=== PATIENT | female | born 1970 | race Caucasian/White ===

== ENCOUNTER 2019-10-16 17:16 | Inpatient (IN) | payer MEDICAID, SELFPAY ==
[2019-10-16 17:21] VITALS: BP 136/90; PULSE 108; RESP 18; TEMP 36.7; O2SAT 98; BMI 25.8
[2019-10-16 17:31] VITALS: RESP 18
--- NOTE | 2019-10-16 17:43 | ECG_ITS ---
[facility] Test Date: 2019-10-16 Pat Name: Deric Dumas Department: Room: Gender: Female Scout: : 1970 Requested By: Marion Boyle Order Number: [id number] López MD: Maryuri Aparicio M.D. Measurements Intervals [place] Rate: 92 P: 27 MN: 147 QRS: -24 QRSD: 104 T: 50 QT: 386 QTc: 478 Interpretive Statements SINUS RHYTHM POSSIBLE LEFT ATRIAL ENLARGEMENT [-0.1mV P WAVE IN V1/V2] INCOMPLETE RIGHT BUNDLE BRANCH BLOCK [90+ ms QRS DURATION, TERMINAL R IN V1/V2, 40+ ms S IN I/aVL/V4/V5/V6] SEPTAL MYOCARDIAL INFARCTION , OF INDETERMINATE AGE [40+ ms Q WAVE IN V1/V2] No previous ECG available for comparison Electronically Signed On 10-16-2019 20:55:32 CDT by Maryuri Aparicio M.D. [id number]
--- NOTE | 2019-10-16 17:44 | XRR_ITS ---
PROCEDURE INFORMATION: Exam: XR Chest, 1 View Exam date and time: 10/16/2019 5:46 PM Age: 49 years old Clinical indication: Hyperventilation; Additional info: Injury TECHNIQUE: Imaging protocol: XR of the chest Views: 1 view. COMPARISON: No relevant prior studies available. FINDINGS: Lungs: Unremarkable. No consolidation. Pleural space: Unremarkable. No pleural effusion. No pneumothorax. Heart/Mediastinum: Unremarkable. No cardiomegaly. Bones/joints: No acute abnormality. XR/XR chest 1V portable [id number] IMPRESSION: No acute findings.
--- NOTE | 2019-10-16 17:50 | ED_ITS ---
HPI - Psych General: Chief Complaint: Psychiatric Symptoms Stated Complaint: SI ATTEMPT Time Seen by Provider: 10/16/19 17:39 Source: patient and police Mode of arrival: ambulatory Limitations: no limitations History of Present Illness: HPI Narrative: Deric is a 49-year-old female who is brought in by police after she was caught trying to strangle herself with a blanket while in prison. Patient was arrested and charged with DUI and placed in a sobriety hold. She was seen on camera trying to strangle herself because of this she was brought here. The patient never lost consciousness and she denies any injuries. Law enforcement does not report the patient was ever unresponsive or appears significantly affected by the strangulation attempt. Patient admits to history of PTSD and alcohol and drug abuse. She states she has recently lost her sobriety and because of this and the arrest she was overwhelmed and that is why she tried to kill herself. She otherwise denying any complaints or concerns at this time. Review of Systems Const: Denies: fever(s), chills, body aches, fatigue, malaise or diaphoresis Eyes: Denies: change in vision, blurry vision, photophobia, eye discomfort, eye discharge or eye redness ENMT: Denies: throat pain, odynophagia, hoarseness, swelling of lips/tongue, ear or mastoid pain, ear discharge, change in hearing or nasal discharge Card: Denies: chest pain, palpitations, irregular heart rhythm, edema, lightheadedness, syncope, pre-syncope, dyspnea on exertion or orthopnea Resp: Denies: dyspnea, productive cough, non-productive cough, wheezing, hemoptysis or chest congestion GI: Denies: abdominal pain, nausea, vomiting, hematemesis, coffee ground emesis, heartburn, diarrhea, constipation, GI cramping, hematochezia or melena : Denies: flank pain, dysuria, urinary frequency, urinary urgency or hematuria Musc: Denies: neck pain, back pain, extremity pain, extremity swelling, joint pain, joint swelling, joint redness, joint warmth or joint stiffness Skin/Breast: Denies: rash, pruritus, erythema or skin tenderness Neuro: Denies: headache(s), numbness in extremities, weakness in extremities, sensory changes, lack of coordination, difficulty walking, dizziness, vertigo, confusion, Slurred speech present or seizure-like activity Nikita/Lymph: Denies: easy bruising, easy bleeding, petechiae, purpura or enlarged lymph nodes All/Imm: Denies: urticaria, throat swelling, tongue swelling, facial swelling or acute wheezing PFSH ED PFSH: Medical History Alcoholism Opiate abuse, episodic PTSD (post-traumatic stress disorder) Physical Exam Const: COMMON NORMALS: no acute distress, patient oriented x3, no limitations, healthy appearing and well nourished GENERAL APPEARANCE: cooperative, well kempt and well developed HENMT: COMMON NORMALS: normocephalic, atraumatic, external ears normal, EAC's normal and Normal external nose present HEAD & SCALP: normal to inspection, normocephalic and atraumatic FACE & SINUS: normal facial exam and face symmetric NOSE: Normal external nose present and Normal nares present EXTERNAL EAR: Yes external ears normal EXTERNAL AUDITORY CANAL: EAC's normal MOUTH: Normal oral and palatal mucosa present, lip normal and tongue normal Eye: COMMON NORMALS: Equal, round and reactive pupils present and conjunctivae normal GENERAL EYE: appearance normal, both eyes and all related structures ALIGNMENT: Yes alignment normal PERIORBITAL: periorbital findings normal EYELID: eyelids normal CONJUNCTIVA: Yes conjunctivae normal SCLERA: sclerae normal PUPIL: Yes Equal, round and reactive pupils present Neck/C-Spine: COMMON NORMALS: full ROM, no lymphadenopathy, supple, no meningeal signs and no JVD GENERAL: Yes normal visual inspection and Yes trachea midline Chest: COMMONS NORMALS: normal inspection of the chest and normal palpation of entire chest wall Resp: COMMON NORMALS: normal respiratory effort, No retractions, No use of accessory muscles and clear to auscultation bilaterally EFFORT & INSPECTION: Yes able to speak in complete sentences and Yes symmetric chest movement AUSCULTATION: clear to auscultation bilaterally, no crackles, no rales, no rhonchi and no wheezes Cardio: COMMON NORMALS: no JVD, regular rate, regular rhythm, S1 normal heart sound present and S2 normal heart sound present RATE: regular rate RHYTHM: regular rhythm HEART SOUNDS: S1 normal heart sound present, S2 normal heart sound present, no click, no gallops, no murmurs, no rubs and abnormal split S2 GI: COMMON NORMALS: Soft to palpation and No hepatosplenomegaly present PALPATION: Yes Soft to palpation, No Tenderness to palpation present (GI), No Guarding due to palpation present (GI), No Rigid due to palpation, Yes No hepatosplenomegaly present, No Hernia present, No Palpable mass present and No Pulsatile mass present : COMMON NORMALS: Yes no CVA tenderness BLADDER/KIDNEY EXAM: Yes no CVA tenderness EXTERNAL FEMALE EXAM: No Hernia present Back/Pelvis: COMMON NORMALS: no CVA tenderness, thoracic and lumbar spine normal to inspection, no thoracic nor lumbar tenderness and thoraco-lumbar ROM normal Extremity: COMMON NORMALS: normal to inspection, full ROM, capillary refill normal, no joint enlargement, no clubbing, cyanosis or edema and no calf tenderness Neuro: COMMON NORMALS: patient oriented x3, CN's II-XII intact bilaterally, moves all extremities, no focal motor deficits and no sensory deficits noted MENINGEAL SIGNS: Yes no meningeal signs SPEECH: speech normal Psych: COMMON NORMALS: mental status grossly normal, Normal thought process present, cooperative, normal affect, speech normal and activity/motor behavior normal APPEARANCE: Yes well kempt SPEECH: Yes normal speech THOUGHT PROCESS: Normal thought process present Skin: COMMON NORMALS: no rashes or lesions noted, turgor normal, no jaundice, no petechiae and no mottling GENERAL SKIN EXAM: no rashes or lesions noted and turgor normal MDM - Psych MDM Narrative: Medical decision making narrative: Patient does not appear to have any significant injuries from her suicide attempt. I have reviewed the case in full with Dr. Peterson and he is to go to admission we will place the patient under 96-hour hold. EKG Data^: EKG 1: Attestation: I personally reviewed and interpreted this EKG as follows: EKG interpretation date: 10/16/19 EKG interpretation time: 17:56 Interpretation: Normal sinus rhythm at 92 beats a minute, no blocks, normal intervals, nonspecific ST and T wave changes. Discharge Plan Discharge Patient Disposition: Admitted As Inpatient Clinical Impression: Suicidal ideation Condition: Stable Coding Level of Care Code ED Registered Public Health Nurse for Chg Fwd Exam Comprehensive
[2019-10-16] MEDS: haloperidol inj 5 mg/mL INJ 1 mL 2.5 MG IM (17:58)
[2019-10-16] MEDS: LORazepam 2 mg/mL INJ 1 mL 1 MG IM (17:58)
[2019-10-16] MEDS: diphenhydrAMINE 50 mg/mL SDV 1mL IM (17:58)
[2019-10-16 18:17] LABS: Basophils # 0.1 10^3/uL (0.0-0.1); Basophils % 1.1 %; Eosinophils # 0.1 10^3/uL (0.0-0.8); Eosinophils % 1.8 %; Hematocrit 42.9 % (37.0-47.0); Hemoglobin 13.9 g/dL (11.5-15.3); Lymphocytes # 3.4 10^3/uL (0.8-4.8); Lymphocytes % 59.8 %; Mean Corpuscular HGB Conc 32.4 g/dL (30.0-36.0); Mean Corpuscular Hemoglobin 31.2 pg (28.0-34.0); Mean Corpuscular Volume 96.2 fL (81-99); Mean Platelet Volume 9.8 fL (7.4-10.4); Monocytes # 0.5 10^3/uL (0.2-0.9); Monocytes % 8.1 %; Neutrophils # 1.66 10^3/uL (1.8-7.7); Nucleated Red Blood Cells % 0 %; Platelet Count 520 10^3/cmm (130-400); Red Blood Count 4.46 10^6/uL (4.1-5.3); Red Cell Distribution Width 15.8 % (12.1-15.1); White Blood Count 5.7 10^3/uL (4.0-10.0)
[2019-10-16 18:29] LABS: INR 0.81 (0.8-1.2)
[2019-10-16 18:30] LABS: HCG, Serum Qual Negative (Negative)
[2019-10-16 18:46] LABS: Alanine Aminotransferase 20 U/L (0-33); Albumin Level 4.2 g/dL (3.5-5.2); Alcohol Level 195 mg/dL (0-10); Alkaline Phosphatase 101 IU/L (35-105); Anion Gap 15.4 (5-19); Aspartate Amino Transferase 19 U/L (0-32); Blood Urea Nitrogen 10 mg/dL (6-20); Calcium 9.3 mg/dL (8.5-10.5); Carbon Dioxide 26 mmol/L (22-29); Chloride 106 mmol/L (98-107); Globulin 3.2 g/dL (1.3-4.6); Glomerular Filtration Rate 59.2 mL/min (90-130); Glucose 102 mg/dL (65-115); Magnesium 2.2 mg/dL (1.7-2.3); Osmolality Calculated 294 mOsm/kg (285-295); Potassium 3.4 mmol/L (3.5-5.1); Salicylate 1.8 mg/dL (3-10); Sodium 144 mmol/L (136-145); Thyroid Stimulating Hormone 0.38 uIU/mL (0.27-4.20); Total Bilirubin 0.2 mg/dL (0.15-1.2); Total Protein 7.4 g/dL (6.6-8.7)
[2019-10-16 18:47] LABS: Acetaminophen < 5.0 ug/mL (10-30)
--- NOTE | 2019-10-16 19:20 | PC.NURSE ---
attempted to call report at 1845, 1850, and 1920. Unable to call report d/t nurse unavailability in receiving unit.
[2019-10-16 19:25] LABS: Amphetamines Screen Urine Negative (Negative); Barbiturates Screen Urine Negative (Negative); Benzodiazepines Screen Urine Negative (Negative); Cocaine Screen Urine Negative (Negative); Opiate Screen Urine Negative (Negative); PCP Screen Urine Negative (Negative); THC Screen Urine Negative (Negative)
[2019-10-16 19:41] VITALS: RESP 18
[2019-10-16 19:59] VITALS: BP 128/76; PULSE 93; RESP 18; TEMP 35.9; O2SAT 91
[2019-10-16 21:36] VITALS: BP 128/76; PULSE 93; RESP 18; TEMP 35.9; O2SAT 91
[2019-10-16] MEDS: trazodone 50 mg Tablet PO (23:13)
[2019-10-16] MEDS: hyDROXYzine 25 mg Capsule 50 MG PO (23:13)
[2019-10-16] MEDS: acetaminophen 325 mg Tablet 650 MG PO (23:13)
--- NOTE | 2019-10-16 23:15 | PC.NURSE ---
PRN VISTARIL & TRAZODONE VISTARIL 50MG PO & TRAZODONE 50MG PO ADMINISTERED FOR ANXIETY AND SLEEP. WILL MONITOR FOR MEDICATION EFFECTIVENESS.
[2019-10-17 06:00] VITALS: BP 116/78; PULSE 68; RESP 15; TEMP 36.5; O2SAT 96
[2019-10-17] MEDS: pantoprazole DR 40 mg Tablet PO (08:42)
[2019-10-17] MEDS: multivitamin therapeutic Tablet 1 TAB PO (08:42)
[2019-10-17] MEDS: escitalopram 10 mg Tablet 20 MG PO (08:42)
[2019-10-17] MEDS: thiamine 100 mg Tablet PO (08:42)
[2019-10-17] MEDS: pregabalin 150 mg Capsule PO ×2 (08:42→17:25)
[2019-10-17] MEDS: folic acid 1 mg Tablet PO (08:42)
[2019-10-17] MEDS: lisinopril 20 mg Tablet 40 MG PO (08:42)
[2019-10-17] MEDS: nicotine 21 mg Patch 1 PATCH TRANSDERMA (08:43)
[2019-10-17] MEDS: hyDROXYzine 25 mg Capsule 50 MG PO ×2 (08:47→17:25)
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
[2019-10-17] MEDS: LORazepam 2 mg Tablet PO ×2 (13:09→21:14)
[2019-10-17 14:00] VITALS: BP 124/89; PULSE 86; RESP 16; TEMP 36.6; O2SAT 96
[2019-10-17] MEDS: diphenhydrAMINE 50 mg Capsule 100 MG PO (21:03)
[2019-10-17] MEDS: trazodone 50 mg Tablet PO (21:03)
[2019-10-17] MEDS: acetaminophen 325 mg Tablet 650 MG PO (21:03)
[2019-10-17 21:26] VITALS: BP 111/70; PULSE 81; RESP 21; TEMP 37.1; O2SAT 95
--- NOTE | 2019-10-17 22:21 | PC.NURSE ---
pt given scheduled HS benadryl and trazodone, as well as requested Ativan and Tylenol.
[2019-10-18 06:00] VITALS: BP 106/72; PULSE 63; RESP 20; TEMP 37.1; O2SAT 100
[2019-10-18] MEDS: thiamine 100 mg Tablet PO (08:53)
[2019-10-18] MEDS: lisinopril 20 mg Tablet 40 MG PO (08:53)
[2019-10-18] MEDS: pantoprazole DR 40 mg Tablet PO (08:54)
[2019-10-18] MEDS: folic acid 1 mg Tablet PO (08:54)
[2019-10-18] MEDS: multivitamin therapeutic Tablet 1 TAB PO (08:54)
[2019-10-18] MEDS: pregabalin 150 mg Capsule PO ×2 (08:54→18:26)
[2019-10-18] MEDS: nicotine 21 mg Patch 1 PATCH TRANSDERMA (08:54)
[2019-10-18] MEDS: escitalopram 10 mg Tablet 20 MG PO (08:54)
[2019-10-18] MEDS: BuSPIRONE 10 mg Tablet PO ×2 (10:55→18:26)
--- NOTE | 2019-10-18 11:24 | P.PN_ITS ---
Subjective NPU Subjective: Interval history: On her first meeting with this physician, the patient describes her situation consistent with that described in her history and physical. She feels that she is progressing through withdrawal and is having some mild symptoms but is not concerned about immediate outcome of the withdrawal process. She expects that to proceed without difficulty. She is concerned about the many decisions and problems that she is now presented. She is not sure she trusts her judgment. She denied suicidal and homicidal ideation. She denied the presence of auditory and visual hallucinations. She would like to call her sponsor and process her options. She has a job which starts in [employer] tomorrow but is also considering entry into a long-term rehabilitation program. She states that her family is supporting the need to be in rehab. Mental Status Exam MSE Comments: This is a well-nourished, well-developed, white female, with a hospital gown on with appropriate grooming and eye contact. No abnormal movements except for mild psychomotor retardation. Cooperative with exam in no acute distress. Speech was normal rate and volume. Mood described as fatigued; affect congruent. Thought process, organized. Thought content: patient denied any suicidal or homicidal ideation, there were no delusions reported or noted, patient denied any auditory or visual hallucinations. Attention, concentration, and memory appear intact but were not formally tested. She is alert and oriented times three. Insight and judgment are fair. Impulse control impaired. Behavior: Patient Behavior: Cooperative Speech Pattern: Clear Vitals/I&O/Wt Last Vital Signs Temp 98.8 F 10/18/19 06:00 Pulse 63 10/18/19 06:00 Resp 20 H 10/18/19 06:00 BP 106/72 10/18/19 06:00 Pulse Ox 100 10/18/19 06:00 Weight last 48 hrs Weight 81.42 kg Weight 81.647 kg Data NPU : 10/16/19 17:56 10/16/19 17:56 A&P Assessment and plan (1) PTSD (post-traumatic stress disorder): Status: Chronic (2) Alcoholism: Status: Acute (3) Opiate abuse, episodic: Status: Acute (4) Suicidal ideation: Status: Resolved (5) Anxiety: Status: Acute Additional A&P Information This is a 49 year old, white female, with a long history of alcohol use disorder, depression, and anxiety, who presents with active addiction and a desire for rehab if available in her non-insurance status and an openness to lashell atment. Continue current medication. Start Buspar 10 mg po bid. Hospital day #3: No medication changes will be initiated. We will support her exploration of options and support her need to go into a rehabilitation program. However at this time she does not appear to be an imminent risk to self or others. The patient should continue CIWA protocol. Encourage individual, group, and milieu therapy. Continue q-15 minute checks for safety. Recommend sober living treatment at the highest level of care to which the patient is willing to commit. Involuntary Hold Information 96 Hour Hold: 96 Hour Involuntary Admission: Yes 96 Hour Hold Ending Date: 10/22/19 96 Hour Hold Ending Time: 12:01 Attestations NPU Medical Necessity Statement*: Patient will remain in the hospital another 2-3 nights for the completion of her 96-hour involuntary commitment. Coding Level of Care Code Acute Parking Enforcement Specialist for Tiana Davis Diagnoses PTSD (post-traumatic stress disorder) F43.10 Alcoholism F10.20 Opiate abuse, episodic F11.10 Suicidal ideation R45.851 Anxiety F41.9
[2019-10-18] MEDS: hyDROXYzine 25 mg Capsule 50 MG PO ×2 (11:40→20:41)
--- NOTE | 2019-10-18 11:41 | PC.NURSE ---
PRN VISTARIL VISTARIL 50MG PO PER PATIENT C/O ANXIETY. WILL CONTINUE TO MONITOR FOR MEDICATION EFFECTIVENESS.
--- NOTE | 2019-10-18 12:20 | PC.NURSE ---
PRN VISTARIL FOLLOW UP MEDICATION EFFECTIVE. NO FURTHER C/O ANXIETY.
[2019-10-18] MEDS: LORazepam 2 mg Tablet PO (13:57)
[2019-10-18 14:00] VITALS: BP 140/87; PULSE 101; RESP 17; TEMP 36.9; O2SAT 97
[2019-10-18] MEDS: OLANZapine 5 mg ODT PO (15:35)
--- NOTE | 2019-10-18 15:35 | PC.NURSE ---
PRN ZYPREXA ZYDIS ZYPREXA ZYDIS 5MG PO PER PATIENT C/O ANXIETY/AGITATION. PATIENT IS LYING IN BED CRYING. WILL CONTINUE TO MONITOR FOR MEDICATION EFFECTIVENESS.
--- NOTE | 2019-10-18 16:20 | PC.NURSE ---
prn zyprexa alannahydis follow up medication effective. patient lying down in bed resting.
[2019-10-18] MEDS: acetaminophen 325 mg Tablet 650 MG PO (20:41)
[2019-10-18] MEDS: trazodone 50 mg Tablet PO (20:41)
[2019-10-18] MEDS: diphenhydrAMINE 50 mg Capsule 100 MG PO (20:45)
[2019-10-18 22:00] VITALS: BP 98/64; PULSE 67; RESP 16; TEMP 36.6; O2SAT 96
--- NOTE | 2019-10-18 22:09 | PC.NURSE ---
PRNs given @2040 Visteril 50mg PO for anxiety Tylenol 650mg PO for generalized pain Will continue to monitor
--- NOTE | 2019-10-18 22:26 | NUR.SHIFT ---
Pt is easy to talk to this evening. 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 Alcohol has been an issue for this patient since she was 15 years of age. She expressed to me that she has also self medicated her anxiety with street drugs in the past, naming Methamphetamines, Cocaine, and marijuana. She is worried about the location of her car which has her phone and purse in it. She said she seemed to remember that her car was being towed to [facility]. She is supposed to start a new job at [employer] in the morning and needs to contact them before the shift begins. I provided the patient with the phone numbers of the police department in [place], [facility], and the hospital she would be working in. She says that she would like to go to rehab, she spoke to her sponsor for and is ready to commit to treatment in a facility but is concerned that a self pay status would subject her to a lesser treatment facility. She would like to speak to Eladio in social work as soon as possible. One of her concerns is that her fibromyalgia is untreated and stress is making the symptoms worse tonight. She requested medication and was given Visteril 50mg PO and tylenol 650mg PO. She would like something to make her more comfortable.
--- NOTE | 2019-10-18 23:22 | PC.NURSE ---
Patient is using a nicotine patch and reports vivid disturbing dreams. Patch removed. She stated this happened all day as she napped.
--- NOTE | 2019-10-19 03:56 | PC.SOCIAL ---
This patient is nervous about losing her new job that should start in the morning at [employer], the location of her car with her personal contents, and where the police dept took her car. She believes that the car went to the [employer] in [place] by [place] police dept. Patient asked for information and once she took her medication she fell asleep. This is the contact information for each entity: [employer] has 2 locations in [place] both can be reached at [phone] [address]. [address] [facility] [address] [place] [address] [phone] [employer] in [facility] # [phone] Human Resources #[phone]
--- NOTE | 2019-10-19 04:02 | PC.NURSE ---
This patient is nervous about losing her new job that should start in the morning at [facility], the location of her car with her personal contents, and where the police dept took her car. She believes that the car went to the [employer] in [place] by [place] police dept. Patient asked for information and once she took her medication she fell asleep. This is the contact information for each entity: [employer] has 2 locations in [place] both can be reached at [phone] 1. [address] [facility] [address]. [address] [place] [address] [phone] [facility] in [facility] # [phone] Human Resources #[phone]
[2019-10-19 06:00] VITALS: BP 118/80; PULSE 62; RESP 15; TEMP 36.8; O2SAT 98
[2019-10-19] MEDS: thiamine 100 mg Tablet PO (08:23)
[2019-10-19] MEDS: escitalopram 10 mg Tablet 20 MG PO (08:23)
[2019-10-19] MEDS: hyDROXYzine 25 mg Capsule 50 MG PO ×2 (08:23→14:56)
--- NOTE | 2019-10-19 08:23 | PC.NURSE ---
PRN VISTARIL VISTARIL 50MG PO PER PATIENT C/O ANXIETY. WILL CONTINUE TO MONITOR FOR MEDICATION EFFECTIVENESS.
[2019-10-19] MEDS: pregabalin 150 mg Capsule PO (08:24)
[2019-10-19] MEDS: multivitamin therapeutic Tablet 1 TAB PO (08:24)
[2019-10-19] MEDS: lisinopril 20 mg Tablet 40 MG PO (08:24)
[2019-10-19] MEDS: folic acid 1 mg Tablet PO (08:24)
[2019-10-19] MEDS: pantoprazole DR 40 mg Tablet PO (08:24)
[2019-10-19] MEDS: BuSPIRONE 10 mg Tablet PO (08:24)
[2019-10-19] MEDS: nicotine 21 mg Patch 1 PATCH TRANSDERMA (08:24)
--- NOTE | 2019-10-19 09:20 | PC.NURSE ---
PRN VISTARIL FOLLOW UP. MEDICATION EFFECTIVE. NO FURTHER C/O ANXIETY.
[2019-10-19] MEDS: acetaminophen 325 mg Tablet 650 MG PO (10:16)
[2019-10-19 14:00] VITALS: BP 106/73; PULSE 91; RESP 20; TEMP 37.1; O2SAT 98
--- NOTE | 2019-10-19 14:51 | P.DS_ITS ---
Diagnoses at Discharge Discharge Diagnosis (1) PTSD (post-traumatic stress disorder): Status: Chronic (2) Alcoholism: Status: Chronic (3) Opiate abuse, episodic: Status: Acute (4) Suicidal ideation: Status: Resolved (5) Anxiety: Status: Acute Reason for Visit Reason for Visit: SI ATTEMPT Brief History: Deric Dumas is a 49 year old female who presented to the emergency room with the police after she was caught trying to strangle herself in [facility]. She was arrested and charged with DUI and placed on sobriety hold. She was seen on camera trying to strangle herself because she was brought there. She never lost consciousness and denied any injuries. Law enforcement did not report any unresponsiveness or that the patient was affected by the reported strangulation attempt. The patient endorsed history of PTSD and alcohol and drug abuse. She states she lost her sobriety and she is overwhelmed with thoughts of trying to kill herself, but she really wanted help. She was admitted to the neuropsychiatric unit for definitive treatment of these issues. The patient presents to the neuropsychiatric unit reporting that she struggled with depression her entire life and anxiety, but she has never really had treatment for them other than going to primary care providers and getting medications. She has mostly been in the alcohol and other drug arena and mostly it has been alcohol problems. She reports that she has been in and out of rehab at different times in her life. She reports that she has been really struggling with it for the last twelve years, but that she has been getting medications for anxiety and depression without any therapeutic interventions without any regular interactions with therapists for like the past twelve years. She currently has been on Lexapro and Buspar with outside provider and reported that she was okay continuing those medications. She says for about seven years she had been seeing a pain doctor and she was getting Oxycontin and other medications for her pain which is due to a history of back surgery and fibromyalgia. She reports she has been off those medications for months. 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 She reports that she really struggled after going to a travel job in a very COVID stricken area and seeing that devastation has been tough for her. She has a new contract in [place] that she did training for last week and is supposed to start on Friday and so she is really torn between what to do, whether it is go to this, but she is open to going to a rehab if one is available. She reports she has had a DUI in the past and this situation that just arose that led her to coming here is something that she is very challenged by. She reports she has had one suicide attempt in the past and that was about thirteen years ago prior to her first and only past psychiatric inpatient stay which was what kind of launched her getting psychiatric medications off and on and limited treatment. Hospital Course Hospital Course This is a 49 year old, white female, with a long history of alcohol use disorder, depression, and anxiety, who presents with active addiction and a desire for rehab if available in her non-insurance status and an openness to treatment. Continue current medication. Start Buspar 10 mg po bid. Hospital day #3: No medication changes will be initiated. We will support her exploration of options and support her need to go into a rehabilitation program. However at this time she does not appear to be an imminent risk to self or others. The patient should continue CIWA protocol. Encourage individual, group, and milieu therapy. Continue q-15 minute checks for safety. Recommend sober living treatment at the highest level of care to which the patient is willing to commit. Hospital day #3: Interval history: On her first meeting with this physician, the patient describes her situation consistent with that described in her history and physical. She feels that she is progressing through withdrawal and is having some mild symptoms but is not concerned about immediate outcome of the withdrawal process. She expects that to proceed without difficulty. She is concerned about the many decisions and problems that she is now presented. She is not sure she trusts her judgment. She denied suicidal and homicidal ideation. She denied the presence of auditory and visual hallucinations. She would like to call her sponsor and process her options. She has a job which starts in [place] tomorrow but is also considering entry into a long-term rehabilitation program. She states that her family is supporting the need to be in rehab. 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 After discussion with her sponsor and her family, she agreed that going to a rehabilitation program was the most appropriate course. There were some barriers to that given that she is in [place]. It was easier for her to get into a program while in [place] than in a hospital in [place]. Her family was supported and they came up to get her on discharge. Multiple potential inpatient programs were made available to her and it was her intent to choose 1 after spending a few days with her family to make the best choice. Involuntary Hold Information 96 Hour Hold: 96 Hour Involuntary Admission: Yes 96 Hour Hold Ending Date: 10/22/19 96 Hour Hold Ending Time: 12:01 Mental Status Exam MSE Comments: This is a well-nourished, well-developed, white female, with a hospital gown on with appropriate grooming and eye contact. No abnormal movements except for mild psychomotor retardation. Cooperative with exam in no acute distress. Speech was normal rate and volume. Mood described as fatigued; affect congruent. Thought process, organized. Thought content: patient denied any suicidal or homicidal ideation, there were no delusions reported or noted, patient denied any auditory or visual hallucinations. Attention, concentration, and memory appear intact but were not formally tested. She is alert and oriented times three. Insight and judgment are fair. Impulse control impaired. Discharge Data Data Completed and Pending: Completed Studies During Hospitalization Category Date Time Status XR chest 1V edward ble [id number] Stat Exams 10/16/19 17:44 Completed Vitals: Last Vital Signs Temp 98.8 F 10/19/19 16:29 Pulse 91 10/19/19 16:29 Resp 20 H 10/19/19 16:29 BP 106/73 10/19/19 16:29 Pulse Ox 98 10/19/19 16:29 Discharge Plan Discharge Patient Disposition: Home Condition: Stable Prescriptions: New pantoprazole 40 mg Tablet,Delayed Release (Dr/Ec) 40 mg PO DAILY Qty: 30 RF: 4 folic acid 1 mg Tablet 1 mg PO DAILY Qty: 30 RF: 0 Vitamin B-1 (mononitrate) 100 mg Tablet 100 mg PO DAILY Qty: 30 RF: 0 Thera 400 mcg Tablet 1 tab PO DAILY Qty: 30 RF: 0 Continued trazodone 50 mg tablet 50 mg PO BEDTIME Qty: 30 RF: 4 Benadryl 25 mg Capsule 100 mg PO BEDTIME Qty: 120 RF: 4 lisinopril 40 mg tablet 40 mg PO DAILY Qty: 30 RF: 4 buspirone 15 mg tablet 7.5 mg PO BID Qty: 60 RF: 4 escitalopram oxalate 20 mg tablet 20 mg PO DAILY Qty: 30 RF: 4 pregabalin 150 mg capsule 150 mg PO BID Qty: 60 RF: 4 Trucontrol 1 cap PO BID Qty: 60 RF: 4 Trufix 1 cap PO BID Qty: 60 RF: 4 valerian root 2 cap PO BEDTIME Qty: 60 RF: 4 Discharge Orders: Discharge Order (Routine); Ordered 10/19/19 Ordered By: Faheem Osborne Referrals: Dr. Peters [Other] - 4-7 days (you said that Dr. Peters is your primary care provider and that you will make the appointment for follow-up. ) Patient Instructions: Alcohol Abuse, Hydroxyzine Pamoate (By mouth), Anxiety (DC) Activity Restrictions/Additional Instructions: You were given some suggestions on where to go for recovery program. It is recommended to at least get on the waiting list! List of AA/NA meetings given to you. Do consider going to the meetings until you can get into treatment. 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
--- NOTE | 2019-10-19 14:58 | PC.NURSE ---
PRN VISTARIL VISTARIL 50MG PO PER PATIENT C/O ANXIETY. WILL CONTINUE TO MONITOR FOR MEDICATION EFFECTIVENESS.
[2019-10-19 16:29] VITALS: BP 106/73; PULSE 91; RESP 20; TEMP 37.1; O2SAT 98
--- NOTE | 2019-10-19 17:05 | PC.NURSE ---
Vistaril Telephone order received from Dr. Osborne to call in order for Vistaril 50mg Q6H PRN anxiety for one month and 4 refills.
== END 2019-10-19 16:45 | disposition home or self-care (01) | DRG 880 ==
LOC: ER 17:56 → NP 18:32
PROVIDERS: Emergency Medicine; Admitting Provider Psychiatry & Neurology Psychiatry; Visit Provider Psychiatry & Neurology Psychiatry
DX: F41.9 Anxiety disorder, unspecified (principal); R45.851 Suicidal ideations; F11.20 Opioid dependence, uncomplicated; F43.12 Post-traumatic stress disorder, chronic
CPT/HCPCS: 12345; 71045; 80053; 80306; 80307; 83735; 84443; 84703; 85025; 85610; 93005; 96372; 99284; J1200; J1630; J2060; Q0163